=== PATIENT | female | born 1965 | race Caucasian/White ===

== ENCOUNTER 2018-09-27 23:50 | Emergency (ER) | payer MEDICAID ==
[2018-09-28] MEDS ORDERED: Famotidine 20 MG Tab PO ONE (00:52)
[2018-09-28] MEDS ORDERED: Ketorolac 60 MG/2 ML SDV IM ONE (00:52)
[2018-09-28] MEDS ORDERED: Acetaminophen/oxyCODONE 325-5 MG Tab PO ONE (00:53)
--- NOTE | 2018-09-28 00:59 | EDM.PDOC ---
ED HPI GENERAL MEDICAL PROBLEM - General Chief Complaint: ENT Problem Stated Complaint: TOOTHACHE Time Seen by Provider: 09/28/18 00:54 Source of Information: Reports: Patient History Limitations: Reports: No Limitations - History of Present Illness INITIAL COMMENTS - FREE TEXT/NARRATIVE: pt arrived with a very painful rt lower molar,. She has a dental appt in [place] with her usual dentist on next wed. She is on antibiotuics given to her from [facility]. She has felt ill in general she has been sick to her stomach. She has been having black tarry stools. Onset: Gradual, Other (pt is having increased dental pain. She has noted black tarry stools. ) Duration: Hour(s): Location: Reports: Face, Abdomen Associated Symptoms: Reports: Fever/Chills, Nausea/Vomiting, Other (pt has just not been feeling well. ) - Related Data Allergies Allergy/AdvReac Type Severity Reaction Status Date / Time No Known Allergies Allergy Verified 08/05/13 21:23 Home Meds: Home Meds Cyclobenzaprine [Flexeril] 10 mg PO BEDTIME 08/05/13 [History] Fish Oil/[place]-3 Fatty Acids [Fish Oil] 1 each PO DAILY 08/05/13 [History] Gabapentin [Neurontin] 600 mg PO BID 08/05/13 [History] Gabapentin [Neurontin] 900 mg PO BEDTIME 08/05/13 [History] Ibuprofen [Motrin] 1,200 mg PO BID PRN 08/05/13 [History] Multivitamin [Daily Multiple Vitamin] 1 tab PO DAILY 08/05/13 [History] Propranolol [Propranolol CR 24 Hr] 1 tab PO TID PRN 08/05/13 [History] Sertraline [Zoloft] 150 mg PO DAILY 08/05/13 [History] buPROPion [buPROPion XL] 150 mg PO DAILY 08/05/13 [History] hydrOXYzine HCl [Atarax] 50 mg PO BEDTIME 08/05/13 [History] hydrOXYzine HCl [hydrOXYzine] 25 mg PO TID PRN 08/05/13 [History] ED ROS ENT - Review of Systems Review Of Systems: See Below Constitutional: Reports: Chills, Malaise, Decreased Appetite HEENT: Reports: Dental Pain Respiratory: Reports: No Symptoms Cardiovascular: Reports: Dyspnea on Exertion Endocrine: Reports: No Symptoms GI/Abdominal: Reports: Nausea, Other (pt has been having black stools. ) : Reports: No Symptoms Musculoskeletal: Reports: No Symptoms Skin: Reports: No Symptoms Neurological: Reports: No Symptoms ED EXAM, ENT - Physical Exam Exam: See Below Text/Narrative:: pt arrived with severe dental pain. He hs had black tarry stools. she is feeling sick all over. She is having difficulty taking her meds Exam Limited By: No Limitations General Appearance: Alert, Anxious, Mild Distress Ears: Normal TMs Nose: Nasal Deformity Mouth/Throat: Normal Inspection Head: Atraumatic Neck: Normal Inspection Respiratory/Chest: No Respiratory Distress Cardiovascular: Regular Rate, Rhythm (Female) Exam: Deferred Rectal (Female) Exam: Other (no masses stool is black) Back: Normal Inspection Extremities: Normal Inspection Course - Vital Signs Last Recorded V/S: Last Vital Signs Temp 35.5 C 09/28/18 01:03 Pulse 80 09/28/18 01:03 Resp 16 09/28/18 01:03 BP 136/81 09/28/18 01:03 Pulse Ox 96 09/28/18 01:03 - Orders/Labs/Meds Orders: Active Orders 24 hr Category Date Time Status CULTURE URINE [RM] Stat Lab 09/28/18 01:53 Ordered Labs: Laboratory Tests 09/28/18 09/28/18 09/28/18 Range/Units 00:51 01:00 01:00 WBC 9.3 (4.5-11.0) K/uL RBC 5.17 (3.30-5.50) M/uL Hgb 13.9 (12.0-15.0) g/dL Hct 43.1 (36.0-48.0) % MCV 83 (80-98) fL MCH 27 (27-31) pg MCHC 32 (32-36) % Plt Count 339 (150-400) K/uL Neut % (Auto) 40 (36-66) % Lymph % (Auto) 41 (24-44) % [place] % (Auto) 13 H (2-6) % Eos % (Auto) 5 H (2-4) % Baso % (Auto) 1 (0-1) % Sodium 140 (140-148) mmol/L Potassium 3.5 L (3.6-5.2) mmol/L Chloride 98 L (100-108) mmol/L Carbon Dioxide 33 H (21-32) mmol/L Anion Gap 12.5 (5.0-14.0) mmol/L BUN 14 (7-18) mg/dL Creatinine 1.1 H (0.6-1.0) mg/dL Est Cr Clr Drug Dosing 48.36 mL/min Estimated GFR (MDRD) 52 L (>60) Glucose 125 H (74-106) mg/dL Calcium 9.8 (8.5-10.1) mg/dL Total Bilirubin 0.3 (0.2-1.0) mg/dL AST 26 (15-37) U/L ALT 28 (12-78) U/L Alkaline Phosphatase 83 (46-116) U/L Total Protein 7.9 (6.4-8.2) g/dL Albumin 4.0 (3.4-5.0) g/dL Globulin 3.9 H (2.3-3.5) g/dL Albumin/Globulin Ratio 1.0 L (1.2-2.2) Urine Color Yellow Urine Appearance Slightly cloudy Urine pH 8.0 (4.5-8.0) Ur Specific [place] 1.010 (1.008-1.030) Urine Protein Negative (NEGATIVE) mg/dL Urine Glucose (UA) Normal (NEGATIVE) mg/dL Urine Ketones Negative (NEGATIVE) mg/dL Urine Occult Blood Negative (NEGATIVE) Urine Nitrite Negative (NEGATIVE) Urine Bilirubin Negative (NEGATIVE) Urine Urobilinogen Normal (NORMAL) mg/dL Ur Leukocyte Esterase Moderate (NEGATIVE) Urine RBC 0-5 (0-5) Urine WBC 0-5 (0-5) Ur Epithelial Cells Few Amorphous Sediment Moderate Urine Bacteria Many Urine Mucus Not seen Meds: Medications Discontinued Medications Generic Name Dose Route Start Last Admin Trade Name Freq PRN Reason Stop Dose Admin Famotidine 20 mg 09/28/18 00:52 09/28/18 01:19 Pepcid PO 09/28/18 00:53 20 mg ONETIME ONE Administration Ketorolac Tromethamine 60 mg 09/28/18 00:52 09/28/18 01:21 Toradol IM 09/28/18 00:53 60 mg ONETIME ONE Administration Oxycodone/Acetaminophen 1 tab 09/28/18 00:53 09/28/18 01:20 Percocet 325-5 Mg PO 09/28/18 00:54 1 tab ONETIME ONE Administration - Re-Assessments/Exams Free Text/Narrative Re-Assessment/Exam: 09/28/18 02:03 stool for occult blood was neg. wbc was not elevated. Her urine did have alot of bacteria. The urine was cultured. Pt has a dental appt on next wed. Departure - Departure Time of Disposition: 02:05 Disposition: Home, Self-Care 01 Condition: Fair Clinical Impression: Dental infection, Gastrointestinal irritation - Discharge Information Referrals: PCP,None [Primary Care Provider] - Forms: ED Department Discharge Care Plan Goals: switch to keflex 500mg tid for the next 5 days, for gi irrtation use pepcid 20 mg bid, tylenol for pain, norco 5/325 q6h prn for severe pain, When on the antibiotics use alot of yogurt or probiotic. - My Orders Last 24 Hours: My Active Orders 09/28/18 01:53 CULTURE URINE [RM] Stat - Assessment/Plan Last 24 Hours: My Active Orders 09/28/18 01:53 CULTURE URINE [RM] Stat
== END 2018-09-28 02:24 | disposition home or self-care (01) ==
LOC: JP.ED 23:50
DX: K04.7 Periapical abscess without sinus (principal); K92.89 Other specified diseases of the digestive system; Z79.899 Other long term (current) drug therapy
CPT/HCPCS: 36415; 80053; 81001; 82272; 85025; 87086; 96372; 99282; A9270; J1885

== ENCOUNTER 2018-09-30 21:59 | Emergency (ER) | payer MEDICAID ==
[2018-09-30] MEDS ORDERED: Dental Adhesive 1 Tube DENT ONE ×3 (22:50→23:02)
--- NOTE | 2018-09-30 23:00 | EDM.PDOC ---
ED HPI GENERAL MEDICAL PROBLEM - General Chief Complaint: ENT Problem Stated Complaint: BAD TOOTHACHE Time Seen by Provider: 09/30/18 22:45 Source of Information: Reports: Patient History Limitations: Reports: No Limitations - History of Present Illness INITIAL COMMENTS - FREE TEXT/NARRATIVE: this is her second visit to the ER in 2 days; and urgent one time prior She has bad dental disease; has appt next Wednesday C/o 10 pain; nothing is helping. Onset: Gradual tooth Pain Score (Numeric/FACES): 5 - Related Data Allergies Allergy/AdvReac Type Severity Reaction Status Date / Time No Known Allergies Allergy Verified 09/30/18 22:34 Home Meds: Home Meds Fish Oil/[place]-3 Fatty Acids [Fish Oil] 1 each PO DAILY 08/05/13 [History] Gabapentin [Neurontin] 600 mg PO BID 08/05/13 [History] Gabapentin [Neurontin] 900 mg PO BEDTIME 08/05/13 [History] Ibuprofen [Motrin] 1,200 mg PO BID PRN 08/05/13 [History] Multivitamin [Daily Multiple Vitamin] 1 tab PO DAILY 08/05/13 [History] Sertraline [Zoloft] 150 mg PO DAILY 08/05/13 [History] buPROPion [buPROPion XL] 150 mg PO DAILY 08/05/13 [History] hydrOXYzine HCl [Atarax] 50 mg PO BEDTIME 08/05/13 [History] hydrOXYzine HCl [hydrOXYzine] 25 mg PO TID PRN 08/05/13 [History] Past Medical History HEENT History: Reports: Impaired Vision Gastrointestinal History: Reports: Other (See Below) Other Gastrointestinal History: acid reflux SPINE NURSE History: Reports: Musculoskeletal History: Reports: Fracture - Past Surgical History HEENT Surgical History: Reports: Tonsillectomy, Other (See Below) Other HEENT Surgeries/Procedures: septo-rhinoplasty Female Surgical History: Reports: Section Musculoskeletal Surgical History: Reports: Other (See Below) Other Musculoskeletal Surgeries/Procedures:: left humorous repair, metal plate Social & Family History - Tobacco Use Smoking Status *Q: Current Every Day Smoker Years of Tobacco use: 30 Packs/Tins Daily: 0.5 - Caffeine Use Caffeine Use: Reports: Soda - Recreational Drug Use Recreational Drug Use: No ED ROS GENERAL - Review of Systems Review Of Systems: See Below Constitutional: Reports: Decreased Appetite HEENT: Reports: Dental Pain Respiratory: Reports: No Symptoms Cardiovascular: Reports: No Symptoms GI/Abdominal: Reports: No Symptoms Musculoskeletal: Reports: No Symptoms Skin: Reports: No Symptoms ED EXAM, GENERAL - Physical Exam Exam: See Below Exam Limited By: No Limitations General Appearance: Alert, WD/WN Throat/Mouth: Other (gum swelling, jaw pain, dental caries, fractured teeth; throughout) Head: Atraumatic, Normocephalic Neck: Normal Inspection, Supple, Non-Tender, Full Range of Motion Respiratory/Chest: No Respiratory Distress, Lungs Clear Cardiovascular: Regular Rate, Rhythm GI/Abdominal: Normal Bowel Sounds, Soft Extremities: Normal Inspection, Normal Range of Motion Neurological: Alert, Oriented, CN II-XII Intact, Normal Cognition, Normal Gait Psychiatric: Normal Affect Skin Exam: Warm, Dry, Intact Course - Vital Signs Last Recorded V/S: Last Vital Signs Temp 97 F 09/30/18 22:33 Pulse 87 09/30/18 22:33 Resp 20 09/30/18 22:33 BP 120/66 09/30/18 22:33 Pulse Ox 97 09/30/18 22:33 - Orders/Labs/Meds Meds: Medications Discontinued Medications Generic Name Dose Route Start Last Admin Trade Name Susu PRN Reason Stop Dose Admin Denture Adhesive 1 applic 09/30/18 22:50 09/30/18 22:55 Dentemp Custom DENT 09/30/18 22:51 1 applic ONETIME ONE Administration Denture Adhesive 1 applic 09/30/18 23:00 Dentemp Custom DENT 09/30/18 23:01 ONETIME ONE Denture Adhesive Confirm 09/30/18 23:02 09/30/18 23:06 Dentemp Custom Administered 09/30/18 23:03 Not Given Dose 1 applic DENT .STK-MED ONE Ketorolac Tromethamine 60 mg 09/30/18 23:05 Toradol IM 09/30/18 23:06 ONETIME ONE - Re-Assessments/Exams Free Text/Narrative Re-Assessment/Exam: 09/30/18 23:08 Used dental adhesive to try cover nerve root; did get some relief however she does have severe dental issues. Departure - Departure Time of Disposition: 22:53 Disposition: Home, Self-Care 01 Condition: Good Clinical Impression: Dental caries extending into dentin, Jaw pain - Discharge Information *PRESCRIPTION DRUG MONITORING PROGRAM REVIEWED*: Yes *COPY OF PRESCRIPTION DRUG MONITORING REPORT IN PATIENT JAMAL: Not Applicable Referrals: PCP,None [Primary Care Provider] - Forms: ED Department Discharge Additional Instructions: Be sure to keep your dental appointment Continue with your antibiotic No driving or drinking while taking pain medicine. call with questions. - Problem List & Annotations (1) Jaw pain SNOMED Code(s): 480731875 Code(s): R68.84 - JAW PAIN Status: Acute Current Visit: Yes - Problem List Review Problem List Initiated/Reviewed/Updated: Yes
[2018-09-30] MEDS ORDERED: Ketorolac 60 MG/2 ML SDV IM ONE (23:05)
== END 2018-09-30 23:20 | disposition home or self-care (01) ==
LOC: JP.ED 21:59
DX: K02.9 Dental caries, unspecified (principal); K03.81 Cracked tooth; R68.84 Jaw pain; F17.210 Nicotine dependence, cigarettes, uncomplicated; Z79.899 Other long term (current) drug therapy; Z98.890 Other specified postprocedural states
CPT/HCPCS: 96372; 99282; A9270; J1885